=== PATIENT | female | born 1930 ===

== ENCOUNTER 2019-06-09 09:00 | Emergency (ER) | payer OTHER ==
[~2019-06-09] VITALS: Ht 149.9 cm; Wt 50.8 kg
[2019-06-09] MEDS ORDERED: PEPCID AC20 MG PO (13:36)
[2019-06-09] MEDS ORDERED: INTESTINEX680 M1 PO (13:36)
== END 2019-06-09 14:10 | disposition home or self-care (01) ==
LOC: ER 09:00
DX: K29.60 Other gastritis without bleeding (principal); Q44.6 Cystic disease of liver; G30.8 Other Alzheimer's disease; F02.80 Dementia in other diseases classified elsewhere, unspecified severity, without behavioral disturbance, psychotic disturbance, mood disturbance, and anxiety